=== PATIENT | female | born 1990 | race Caucasian/White ===

== ENCOUNTER 2020-03-20 07:45 | Emergency (ER) | payer BC ==
[~2020-03-20] VITALS: Ht 170.2 cm; Wt 116.6 kg
[2020-03-20 07:47] VITALS: BP 142/76
[2020-03-20 08:54] LABS: BASOPHILS # (AUTO) 0.1 K/uL (0.00-0.22); BASOPHILS % (AUTO) 0.8 % (0.0-2.0); EOSINOPHILS # (AUTO) 0.3 K/uL (0-0.4); EOSINOPHILS % (AUTO) 4.4 % (0.0-4.0); LYMPHOCYTES # (AUTO) 1.8 K/uL (2.5-16.5); LYMPHOCYTES % (AUTO) 25.7 % (20.5-51.1); MEAN CORPUSCULAR HEMOGLOBIN 25 pg (27-31); MEAN CORPUSCULAR HGB CONC 32 g/dL (33-37); MEAN CORPUSCULAR VOLUME 79.3 fL (80-94); MONOCYTES # (AUTO) 0.4 K/uL (0.8-1.0); MONOCYTES % (AUTO) 6.2 % (1.7-9.3); NEUTROPHILS # (AUTO) 4.5 K/uL (1.8-7.7); NEUTROPHILS % (AUTO) 62.9 % (42.2-75.2); PLATELET COUNT (AUTO) 344 K/uL (140-450); RED CELL DISTRIBUTION WIDTH 15.6 % (11.6-13.7); WHITE BLOOD COUNT (AUTO) 7.2 K/uL (4.8-10.8)
[2020-03-20 09:01] LABS: APPEARANCE,URINE CLOUDY (CLEAR); BILIRUBIN,URINE NEGATIVE (NEGATIVE); BLOOD, URINE 3+ (NEGATIVE); COLOR,URINE BROWN (YELLOW); LEUKOCYTE ESTERASE ,URINE NEGATIVE (NEGATIVE); NITRITE, URINE NEGATIVE (NEGATIVE); UGLUCOSE NEGATIVE (NEGATIVE)
[2020-03-20 09:10] VITALS: BP 140/70
[2020-03-20 09:16] LABS: PROTHROMBIN TIME 9.9 secs (10.8-13.4)
[2020-03-20 09:16] LABS: RBC,URINE 50-80 /HPF (0-5); WBC,URINE 0-5 /HPF (0-5)
== END 2020-03-20 09:11 | disposition home or self-care (01) ==
LOC: MED 07:45
DX: N93.9 Abnormal uterine and vaginal bleeding, unspecified (principal)
CPT/HCPCS: 36415; 81001; 81025; 84702; 85025; 85610; 85730; 99283

== ENCOUNTER 2022-05-23 02:30 | Emergency (ER) | payer BC, MEDICAID ==
[~2022-05-23] VITALS: Ht 160 cm; Wt 113.4 kg
[2022-05-23 02:32] VITALS: BP 147/78
--- NOTE | 2022-05-23 02:40 | NUR ---
TO BR FOR [facility] FOLLOWING TRIAGE
--- NOTE | 2022-05-23 03:17 | NUR ---
to bed #11. dr. castillo at bedside
[2022-05-23] MEDS ORDERED: NACL 0.9% 1,000 ML IV ONE (03:20)
[2022-05-23 03:36] LABS: BASOPHILS # (AUTO) 0.1 K/uL (0.00-0.22); EOSINOPHILS # (AUTO) 0.5 K/uL (0-0.4)
[2022-05-23 03:44] LABS: APPEARANCE,URINE CLEAR (CLEAR); BILIRUBIN,URINE NEGATIVE (NEGATIVE); BLOOD, URINE TRACE-I (NEGATIVE); COLOR,URINE YELLOW (YELLOW); LEUKOCYTE ESTERASE ,URINE NEGATIVE (NEGATIVE); NITRITE, URINE NEGATIVE (NEGATIVE); UGLUCOSE NEGATIVE (NEGATIVE)
[2022-05-23 03:51] LABS: LYMPHOCYTES # (AUTO) 3.1 K/uL (2.5-16.5); MEAN CORPUSCULAR HEMOGLOBIN 22 pg (27-31)
[2022-05-23 03:57] LABS: EOSINOPHILS % (AUTO) 5.1 % (0.0-4.0); HEMATOCRIT 31.8 % (36-48); LYMPHOCYTES % (AUTO) 34.1 % (20.5-51.1); MEAN CORPUSCULAR HGB CONC 31 g/dL (33-37); MEAN CORPUSCULAR VOLUME 69.3 fL (80-94); MONOCYTES # (AUTO) 0.7 K/uL (0.8-1.0); MONOCYTES % (AUTO) 7.2 % (1.7-9.3); NEUTROPHILS # (AUTO) 4.8 K/uL (1.8-7.7); NEUTROPHILS % (AUTO) 52.6 % (42.2-75.2); PLATELET COUNT (AUTO) 529 K/uL (140-450); RED BLOOD CELL COUNT(AUTO) 4.59 MIL/uL (4.20-5.40); RED CELL DISTRIBUTION WIDTH 17.7 % (11.6-13.7); WHITE BLOOD COUNT (AUTO) 9.2 K/uL (4.8-10.8)
[2022-05-23 04:00] LABS: RBC,URINE 0-5 /HPF (0-5); WBC,URINE 0-5 /HPF (0-5)
[2022-05-23 04:05] LABS: ALBUMIN 3.6 g/dL (3.4-5.0); CARBON DIOXIDE 25.4 mmol/L (21-32); CREATININE 0.9 mg/dL (0.6-1.3); POTASSIUM 3.4 mmol/L (3.5-5.1); TOTAL BILIRUBIN 0.3 mg/dL (0.0-1.0)
[2022-05-23] MEDS ORDERED: KETOROLAC 30 MG/ML VIAL IVP ONE (06:55)
--- NOTE | 2022-05-23 07:00 | NUR ---
US AT BEDSIDE
--- NOTE | 2022-05-23 07:11 | NUR ---
Pt report given to CAITY (NEFTALI MACKAY). Transfer of care at this time.
--- NOTE | 2022-05-23 07:15 | NUR ---
Pt report given to RONNI LINDSAY. Transfer of care at this time.
[2022-05-23 07:34] VITALS: BP 143/75
[2022-05-23] MEDS ORDERED: ACET-8386 PO (09:10)
[2022-05-23] MEDS ORDERED: IBUP-2213 PO (09:10)
--- NOTE | 2022-05-23 09:20 | NUR ---
Patient discharged with v/s stable. Written and verbal after care instructions given and explained. Patient verbalized understanding. Ambulatory with steady gait. All questions addressed prior to discharge. Advised to follow up with PMD.
[2022-05-27] MEDS ORDERED: IBUP-2213 PO (09:58)
[2022-05-27] MEDS ORDERED: ACET-8386 PO (09:58)
== END 2022-05-23 09:20 | disposition home or self-care (01) ==
LOC: MED 02:30
DX: R10.31 Right lower quadrant pain (principal); Z79.899 Other long term (current) drug therapy
CPT/HCPCS: 36415; 74176; 76856; 80053; 81001; 81025; 83605; 84702; 85025; 87040; 96361; 96374; 99285; J1885; Q0092